=== PATIENT | male | born 1995 | race Caucasian/White ===

== ENCOUNTER 2016-09-28 17:21 | Emergency (ER) | payer OTHER ==
[2016-09-28 17:39] VITALS: BP 114/71; PULSE 102; RESP 18; TEMP 97.9
[2016-09-28] MEDS ORDERED: DIPH,PERTUS(ACELL)TETVAC-LF 0.5 ML VIAL IM ONE (17:56)
--- NOTE | 2016-09-28 17:58 | ED ---
General Adult HPI - General Chief complaint: Animal Bite Stated complaint: dog bite left leg Time Seen by Provider: 09/28/16 17:50 Source: patient, RN notes reviewed Mode of arrival: ambulatory Limitations: no limitations - History of Present Illness Initial comments: This is a 20-year-old male who presents with a dog bite to the left calf that happened today. Patient states he was out for a run and a dog that lives with a family on his street came up behind him and bit in the leg. Patient states he talked to the owners of the dog who states that the dog is up-to-date on all immunizations. Patient states he is unsure if he is up-to-date on his tetanus shot. Patient denies any numbness/weakness or tingling to the left lower extremity. Patient has noticed some pain to the posterior calf at the bite site. Patient is able to ambulate. Patient denies any recent fever, chills, shortness breath, chest pain, abdominal pain, nausea/vomiting/diarrhea, back pain, hematuria, headache, or visual changes, or any other complaints. - Related Data Previous Rx's Medication Instructions Recorded Amoxic-Pot Clav 875-125Mg 1 tab PO Q12HR 7 Days 09/28/16 [Augmentin 875-125] Allergies Allergy/AdvReac Type Severity Reaction Status Date / Time peanut Allergy Unknown Verified 09/28/16 17:39 Childhood Review of Systems ROS Statement: Those systems with pertinent positive or pertinent negative responses have been documented in the HPI. ROS Other: All systems not noted in ROS Statement are negative. Past Medical History Past Medical History: Asthma, GERD/Reflux History of Any Multi-Drug Resistant Organisms: None Reported Past Surgical History: No Surgical Hx Reported Past Psychological History: No Psychological Hx Reported Smoking Status: Never smoker Past Alcohol Use History: None Reported Past Drug Use History: None Reported General Exam - General Exam Comments Initial Comments: General: The patient is awake and alert, in no distress, and does not appear acutely ill. Neck: The neck is supple, there is no tenderness or JVD. Cardiovascular: There is a regular rate and rhythm. No murmur, rub or gallop is appreciated. Respiratory: Lungs are clear to auscultation, respirations are non-labored, breath sounds are equal. No wheezes, stridor, rales, or rhonchi. Musculoskeletal: Full range of motion, strength 5/5 and Sensation intact. Posterior tibial pulses are 2+ bilaterally. Neurological: A&O x 3. CN II-XII intact, There are no obvious motor or sensory deficits. Coordination appears grossly intact. Speech is normal. Skin: There are 2 approximately 0.5 cm abrasions to the left calf with smaller areas of erythema near the abrasions consistent with a scratch. There is some localized swelling to this area as well. Skin is warm and dry and no rashes or lesions are noted. Psychiatric: Normal mood and affect. Limitations: no limitations Course Vital Signs 09/28/16 17:36 Temperature 97.9 F Pulse Rate 102 H Respiratory 18 Rate Blood Pressure 114/71 O2 Sat by Pulse 100 Oximetry Medical Decision Making - Medical Decision Making This is a 20-year-old male who presents with a dog bite left calf. On physical exam There are 2 approximately 0.5 cm abrasions to the left calf and smaller areas of erythema near the abrasions consistent with a scratch. There is some localized swelling to this area as well. The wound was cleansed with normal saline. There were no foreign bodies noted in the wound. No damage to deep structures. Patient is able to ambulate. Patient states the dog is up-to-date on all immunizations per the owners who the patient spoke with personally. An x-ray of the left tib-fib was done and reviewed showing: Nonspecific soft tissue swelling noted. Report read by Dr. Mata. Patient was given a tetanus shot in the EC today. Discussed that the patient will be started on a course of Augmentin. Discussed return parameters. Discussed that patient should follow up with PCP in one to 2 days or return to the [facility] for any worsening symptoms or for any further concerns. Patient was receptive to this plan and patient will be discharged home. Disposition Clinical Impression: Dog bite Disposition: HOME SELF-CARE Condition: Good Instructions: Animal Bite (ED) Additional Instructions: Please keep area clean. These watch for signs of infection. Please finish her course of antibiotics. Please use [id number] Tylenol or Motrin as needed for any pain. Please use medication as discussed. Please follow-up with family doctor in the next 2 days of symptoms have not improved. Please return to emergency room if the symptoms increase or worsen or for any other concerns. Prescriptions: Amoxic-Pot Clav 875-125Mg [Augmentin 875-125] 1 tab PO Q12HR 7 Days Referrals: Carie Lizarraga MD [Primary Care Provider] - 1-2 days Time of Disposition: 18:15
--- NOTE | 2016-09-28 19:38 | XR ---
EXAMINATION TYPE: XR tibia fibula LT DATE OF EXAM: 09/28/2016 6:06 PM COMPARISON: NONE HISTORY: Dog bite to the posterior midcalf TECHNIQUE: 2 views SOFT TISSUE FINDINGS: There is posterior soft tissue swelling, but there is no subcutaneous/soft tiss ue emphysema. Also, there are no radiopaque foreign bodies. SKELETAL FINDINGS: The bones and joints are unremarkable. IMPRESSION: Nonspecific soft tissue swelling noted.
== END 2016-09-28 18:19 | disposition home or self-care (01) ==
LOC: EC 17:21
DX: S81.852A Open bite, left lower leg, initial encounter (principal); W54.0XXA Bitten by dog, initial encounter; Y93.02 Activity, running; Y92.410 Unspecified street and highway as the place of occurrence of the external cause; Z23 Encounter for immunization
CPT/HCPCS: 90471; 90715; 99284

== ENCOUNTER 2018-06-09 02:12 | Emergency (ER) | payer OTHER ==
[2018-06-09 02:24] VITALS: BP 127/82; PULSE 69; RESP 18; TEMP 97.5
[2018-06-09] MEDS ORDERED: OFLOXACIN 0.3% OPHTH DROPS 5 ML BOTTLE LEFT EAR STA (02:37)
[2018-06-09] MEDS ORDERED: SULFAMETH-TMP DS STARTER PACK 2 TAB BTL PO STA (02:38)
--- NOTE | 2018-06-09 02:41 | ED ---
ENT HPI - General Chief complaint: ENT Stated complaint: ear pain Time Seen by Provider: 06/09/18 02:26 Source: patient, RN notes reviewed, old records reviewed Mode of arrival: ambulatory Limitations: no limitations - History of Present Illness Initial comments: Patient is a 22 year old male with left ear swelling over ear canal. Patient reports he noticed it to start a few days ago, and was seen by PCP today. PCP was concerned to drain the area, and patient was given referral to ENT. Patient reports tonight while sleeping, patient swelling burst open and he now has drainage. He reports a week ago he used a ear wick candle to remove cerumen. Patient denies swimming or other risk factors for otitis externa. - Related Data Previous Rx's Medication Instructions Recorded Amoxic-Pot Clav 875-125Mg 1 tab PO Q12HR 7 Days tablet 09/28/16 [Augmentin 875-125] Ofloxacin 0.3% Ophth Soln [Ocuflox 10 drops LEFT EAR BID #1 bottle 06/09/18 Ophth Soln] Sulfamethox-Tmp 800-160Mg [Bactrim 1 tab PO Q12HR #14 tab 06/09/18 DS 800-160 mg] Allergies Allergy/AdvReac Type Severity Reaction Status Date / Time peanut Allergy Unknown Verified 06/09/18 02:24 Childhood Review of Systems ROS Statement: Those systems with pertinent positive or pertinent negative responses have been documented in the HPI. ROS Other: All systems not noted in ROS Statement are negative. Past Medical History Past Medical History: Asthma, GERD/Reflux History of Any Multi-Drug Resistant Organisms: None Reported Past Surgical History: Tonsillectomy Past Psychological History: No Psychological Hx Reported Smoking Status: Never smoker Past Alcohol Use History: Occasional Past Drug Use History: Marijuana General Exam - General Exam Comments Initial Comments: Well appearing 22 year old male, no distress. Limitations: no limitations General appearance: alert, in no apparent distress Head exam: Present: atraumatic, normocephalic, normal inspection Eye exam: Present: normal appearance, PERRL, EOMI. Absent: scleral icterus, conjunctival injection, periorbital swelling ENT exam: Present: normal exam, mucous membranes moist, other (Patient has draining abscess to Left externa ear canal. Patient has opened abscess. ) Cardiovascular Exam: Present: regular rate, normal rhythm, normal heart sounds. Absent: systolic murmur, diastolic murmur, rubs, gallop, clicks GI/Abdominal exam: Present: soft, normal bowel sounds. Absent: distended, tenderness, guarding, rebound, rigid Extremities exam: Present: normal inspection, full ROM, normal capillary refill. Absent: tenderness, pedal edema, joint swelling, calf tenderness Back exam: Present: normal inspection Neurological exam: Present: alert, oriented X3, CN II-XII intact Psychiatric exam: Present: normal affect, normal mood Skin exam: Present: warm, dry, intact, normal color. Absent: rash Course Vital Signs 06/09/18 02:19 Temperature 97.5 F L Pulse Rate 69 Respiratory 18 Rate Blood Pressure 127/82 O2 Sat by Pulse 98 Oximetry Medical Decision Making - Medical Decision Making This patient is a 22 year old male with L ear drainage. Patient has an abscess from inner ear canal and it burst on its own. Culture of drainage obtained. Patient will be started on ear drops and antibiotics. Discussed could be from irritation from candle wick. Advised ENT follow up. Disposition Clinical Impression: Abscess, ear canal Disposition: HOME SELF-CARE Condition: Good Instructions: Abscess (ED) Additional Instructions: Patient has by the antibiotic drops twice a day and take antibiotic prescription. Follow-up with PCP and ear nose and throat doctor. Return to emergency department if any alarming signs or symptoms occur. Prescriptions: Ofloxacin 0.3% Ophth Soln [Ocuflox Ophth Soln] 10 drops LEFT EAR BID #1 bottle Sulfamethox-Tmp 800-160Mg [Bactrim DS 800-160 mg] 1 tab PO Q12HR #14 tab Is patient prescribed a controlled substance at d/c from ED?: No Referrals: Nonstaff,Physician [Primary Care Provider] - 1-2 days Time of Disposition: 02:39
== END 2018-06-09 02:51 | disposition home or self-care (01) ==
LOC: EC 02:12
DX: H60.02 Abscess of left external ear (principal); Z91.010 Allergy to peanuts
CPT/HCPCS: 87070; 87077; 87186; 87205; 99283

== ENCOUNTER 2018-06-24 21:30 | Emergency (ER) | payer OTHER ==
[2018-06-24 21:47] VITALS: TEMP 97.8
[2018-06-24] MEDS ORDERED: IBUPROFEN 600 MG TAB PO STA (22:12)
--- NOTE | 2018-06-24 22:55 | ED ---
General Adult HPI - General Source: patient, RN notes reviewed Mode of arrival: ambulatory Limitations: no limitations <Oseas Hallman P - Last Filed: 06/24/18 23:10> <Caryl Ryan P - Last Filed: 06/25/18 02:43> - General Chief complaint: ENT Stated complaint: ear ache Time Seen by Provider: 06/24/18 21:52 - History of Present Illness Initial comments: 22-year-old male presents to the emergency department for a chief complaint of right ear pain times one day. Patient states earlier today he started to notice a sharp pain starting in his right ear and extending downward. Patient denies any difficulty hearing. Patient states he has been congested and has had a dry throat. Patient denies cough or shortness of breath. Patient denies a sore throat. Patient has no other complaints at this time including shortness of breath, chest pain, abdominal pain, nausea or vomiting, headache, or visual changes. (Oseas Hallman) - Related Data Home Medications Medication Instructions Recorded Confirmed Ofloxacin 0.3% Ophth Soln [Ocuflox 5 drops OTIC BID 06/24/18 06/24/18 Ophth Soln] Sulfamethox-Tmp 800-160Mg [Bactrim 1 tab PO DAILY 06/24/18 06/24/18 DS 800-160 mg] Previous Rx's Medication Instructions Recorded Amoxicillin/Potassium Clav 1 tab PO Q12HR #20 tab 06/24/18 [Augmentin 875-125 Tablet] Fluticasone Nasal [place] [Flonase 1 spray EA NOSTRIL DAILY #1 bottle 06/24/18 Nasal [place]] Loratadine [Claritin] 10 mg PO DAILY #20 tab 06/24/18 Allergies Allergy/AdvReac Type Severity Reaction Status Date / Time peanut Allergy Anaphylaxis Verified 06/24/18 21:58 Review of Systems ROS Other: All systems not noted in ROS Statement are negative. <Oseas Hallman P - Last Filed: 06/24/18 23:10> ROS Other: All systems not noted in ROS Statement are negative. <Cayrl Ryan P - Last Filed: 06/25/18 02:43> ROS Statement: Those systems with pertinent positive or pertinent negative responses have been documented in the HPI. Past Medical History Past Medical History: Asthma, GERD/Reflux History of Any Multi-Drug Resistant Organisms: None Reported Past Surgical History: Tonsillectomy Past Psychological History: No Psychological Hx Reported Smoking Status: Never smoker Past Alcohol Use History: Occasional Past Drug Use History: Marijuana <Oseas Hallman P - Last Filed: 06/24/18 23:10> General Exam Limitations: no limitations General appearance: alert, in no apparent distress Head exam: Present: atraumatic, normocephalic, normal inspection Eye exam: Present: normal appearance, PERRL, EOMI. Absent: scleral icterus, conjunctival injection, periorbital swelling ENT exam: Present: normal exam, normal oropharynx (Nonerythematous, uvula midline), mucous membranes moist, normal external ear exam ( No pain of the tragus or pinna. No edema or erythema noted of the ear canal.). Absent: TM's normal bilaterally (Erythematous tympanic membrane of the right ear with mild opacification. No bulging noted.) Neck exam: Present: normal inspection, full ROM. Absent: tenderness, meningismus, lymphadenopathy Respiratory exam: Present: normal lung sounds bilaterally. Absent: respiratory distress, wheezes, rales, rhonchi, stridor Cardiovascular Exam: Present: regular rate, normal rhythm, normal heart sounds. Absent: systolic murmur, diastolic murmur, rubs, gallop, clicks GI/Abdominal exam: Present: soft, normal bowel sounds. Absent: distended, tenderness, guarding, rebound, rigid Neurological exam: Present: alert, oriented X3, CN II-XII intact Psychiatric exam: Present: normal affect, normal mood <Oseas Hallman P - Last Filed: 06/24/18 23:10> Vital Signs 06/24/18 06/24/18 21:43 23:22 Temperature 97.8 F Pulse Rate 71 74 Respiratory 16 18 Rate Blood Pressure 160/111 142/94 O2 Sat by Pulse 100 97 Oximetry Medical Decision Making <Oseas Hallman P - Last Filed: 06/24/18 23:10> <Caryl Ryan P - Last Filed: 06/25/18 02:43> - Medical Decision Making 22-year-old well-appearing male presents to the emergency department for a chief complaint of right ear pain times one day. Patient describes the pain as a sharp pain in the right ear extending downward. Patient states he has been congested. He denies fevers or chills. Patient did have an abscess in the left ear 2 weeks ago but that has since subsided. On exam patient has an erythematous right tympanic membrane with mild opacification. No bulging noted. Patient likely has an otitis media as well as eustachian tube dysfunction. He will be treated with Claritin and nasal spray for eustachian tube dysfunction. He will be given Augmentin for otitis media. Patient will follow up with ENT at his scheduled appointment in 5 days. Patient aware to return to the emergency Department if he has any worsening symptoms. Mother agrees with this as well. (Oseas Hallman) I was available for consultation in the emergency department. The history and physical exam were done by the midlevel provider. I was consulted for this patient's care. I reviewed the case with the midlevel provider and based on their presentation of the patient, I agree with the assessment, medical decision making and plan of care as documented. (Caryl Ryan) Disposition Is patient prescribed a controlled substance at d/c from ED?: No Time of Disposition: 22:52 <Oseas Hallman P - Last Filed: 06/24/18 23:10> <Caryl Ryan - Last Filed: 06/25/18 02:43> Clinical Impression: Otitis media Disposition: HOME SELF-CARE Condition: Good Instructions: Earache (ED) Additional Instructions: Please take antibiotic as directed. Please use nasal spray and take Claritin as directed. Please follow-up with primary care in 1-2 days. Return to the emergency department if you have any worsening symptoms. Prescriptions: Amoxicillin/Potassium Clav [Augmentin 875-125 Tablet] 1 tab PO Q12HR #20 tab Fluticasone Nasal [place] [Flonase Nasal [place]] 1 spray EA NOSTRIL DAILY #1 bottle Loratadine [Claritin] 10 mg PO DAILY #20 tab Referrals: Edgar Cast MD [Primary Care Provider] - 1-2 days
[2018-06-24 23:26] VITALS: BP 142/94; PULSE 74; RESP 18
== END 2018-06-24 23:25 | disposition home or self-care (01) ==
LOC: EC 21:30
DX: H66.91 Otitis media, unspecified, right ear (principal); J39.2 Other diseases of pharynx; J45.909 Unspecified asthma, uncomplicated; Z91.010 Allergy to peanuts
CPT/HCPCS: 99282

== ENCOUNTER 2018-12-01 18:40 | Emergency (ER) | payer OTHER ==
[2018-12-01 18:50] VITALS: TEMP 98.2
--- NOTE | 2018-12-01 19:49 | XR ---
EXAMINATION TYPE: XR shoulder complete LT DATE OF EXAM: 12/01/2018 COMPARISON: NONE HISTORY: Shoulder pain TECHNIQUE: 3 views FINDINGS: I see no fracture nor dislocation. Joint spaces are normal. There are no pathologic calcifi cations. IMPRESSION: Negative left shoulder exam.
--- NOTE | 2018-12-01 20:21 | ED ---
General Adult HPI - General Chief complaint: ENT Stated complaint: EAR PAIN Time Seen by Provider: 12/01/18 18:53 Source: patient, RN notes reviewed, old records reviewed Mode of arrival: ambulatory Limitations: no limitations - History of Present Illness Initial comments: 22-year-old male patient presents to ED with primary complaint of cyst in left ear. Patient reports that he had a similar occurrence approximately 6 months ago. Patient reports that at that time the cyst ruptured and he never followed up with the ENT. Patient reports that the cyst has been present for approximately 4 days. Patient has a secondary complaint of left shoulder plain. Patient reports that he injured it playing hockey. Patient states that he has some pain with range of motion. Patient denies any other complaints. Systemic: Pt denies fatigue, myalgia, fever/chills, rash. Pt denies weakness, night sweats, weight loss. Neuro: Pt denies headache, visual disturbances, syncope or pre-syncope. HEENT: Pt denies ocular discharge or irritation, rhinorrhea, pharyngitis or notable lymphadenopathy. Cardiopulmonary: Pt denies chest pain, SOB, heart palpitations, dyspnea on exertion. Abdominal/GI: Pt denies abdominal pain, n/v/d. : Pt denies dysuria, burning w/ urination, frequency/urgency. Denies new onset urinary or bowel incontinence. MSK: Pt denies myalgia, loss of strength or function in extremities. Neuro: Pt denies new onset weakness, paresthesias. - Related Data Home Medications Medication Instructions Recorded Confirmed Albuterol Inhaler [Ventolin Hfa 2 puff INHALATION RT-Q6H PRN 12/01/18 12/01/18 Inhaler] Omeprazole [PriLOSEC] 20 mg PO DAILY PRN 12/01/18 12/01/18 Previous Rx's Medication Instructions Recorded Amoxicillin/Potassium Clav 1 each PO Q12HR 10 Days #20 tab 12/01/18 [Augmentin 875-125 Tablet] Allergies Allergy/AdvReac Type Severity Reaction Status Date / Time egg Allergy Unknown Verified 12/01/18 19:21 peanut Allergy Anaphylaxis Verified 12/01/18 19:21 pine nut Allergy Unknown Verified 12/01/18 19:21 Review of Systems ROS Statement: Those systems with pertinent positive or pertinent negative responses have been documented in the HPI. ROS Other: All systems not noted in ROS Statement are negative. Past Medical History Past Medical History: Asthma, GERD/Reflux History of Any Multi-Drug Resistant Organisms: None Reported Past Surgical History: Tonsillectomy Past Psychological History: No Psychological Hx Reported Smoking Status: Never smoker Past Alcohol Use History: Occasional Past Drug Use History: None Reported General Exam - General Exam Comments Initial Comments: Constitutional: NAD, AOX3, Pt has pleasant affect. HEENT: NC/AT, trachea midline, neck supple, no lymphadenopathy. Posterior pharynx non erythematous, without exudates. Mildly erythematous cyst noted in the left auditory canal. No drainage.. Mucous membranes moist. Eyes PERRLA, EOM intact. There is no scleral icterus. No pallor noted. Cardiopulmonary: RRR, no murmurs, rubs or gallops, no JVD noted. Lungs CTAB in anterior and posterior hughes. No peripheral edema. Abdominal exam: Abdomen soft and non-distended. Abdomen non-tender to palpation in all 4 quadrants. Bowel sounds active in LLQ. No hepatosplenomegaly. No ecchymosis Neuro: CN II-XII grossly intact. No nuchal rigidity. MSK: Mild pain with range of motion of left shoulder. Mild anterior tenderness to palpation. Full active range of motion. Neurovascularly intact. No posterior calf tenderness bilaterally, homans sign negative bilaterally. Posterior tibialis and radial pulse +2 bilaterally. Sensation intact in upper and lower extremities. Full active ROM in upper and lower extremities, 5/5 stregnth. Limitations: no limitations Course Vital Signs 12/01/18 12/01/18 18:47 20:33 Temperature 98.2 F Pulse Rate 70 65 Respiratory 18 16 Rate Blood Pressure 133/94 136/92 O2 Sat by Pulse 98 96 Oximetry Medical Decision Making - Medical Decision Making 22-year-old male patient presents to ED with primary complaint of cyst in left ear. Patient reports that he had a similar occurrence approximately 6 months ago. Patient reports that at that time the cyst ruptured and he never followed up with the ENT. Patient reports that the cyst has been present for approximately 4 days. Patient has a secondary complaint of left shoulder plain. Patient reports that he injured it playing hockey. Patient states that he has some pain with range of motion. Patient denies any other complaints. Patient vital signs stable, afebrile. Physical exam displayed: Mildly erythematous cyst noted in the left auditory canal. No drainage. Mild pain with range of motion of left shoulder. Mild anterior tenderness to palpation. Full active range of motion. Neurovascularly intact. Plain film of shoulder displayed no acute process. Patient to follow up with PCP for left shoulder pain. Patient to follow up with ENT referral tomorrow for left cyst. Patient placed on Augmentin. Patient to return to ED if condition worsens in any way. Case discussed with Dr. Morales. Disposition Clinical Impression: Cyst of ear canal Disposition: HOME SELF-CARE Condition: Stable Instructions (If sedation given, give patient instructions): Cyst (ED) Additional Instructions: Patient to adhere to previously discussed treatment plan and will take medication(s) as directed. Patient to follow up with PCP in 1-2 days. Patient to return to ED if symptoms do not improve. Please call ENT tomorrow. Please follow-up with primary care provider in 1-2 days. Please take antibiotics as directed. Please use tylenol / motrin as needed for shoulder pain. Prescriptions: Amoxicillin/Potassium Clav [Augmentin 875-125 Tablet] 1 each PO Q12HR 10 Days #20 tab Is patient prescribed a controlled substance at d/c from ED?: No Referrals: Edgar Cast MD [Primary Care Provider] - 1-2 days Zheng Amaral MD [STAFF PHYSICIAN] - 1-2 days
[2018-12-01 20:34] VITALS: BP 136/92; PULSE 65; RESP 16
== END 2018-12-01 20:33 | disposition home or self-care (01) ==
LOC: EC 18:40
DX: Q18.1 Preauricular sinus and cyst (principal); M25.512 Pain in left shoulder; J45.909 Unspecified asthma, uncomplicated; Z91.010 Allergy to peanuts; Z91.018 Allergy to other foods; Z91.012 Allergy to eggs
CPT/HCPCS: 99283